=== PATIENT | male | born 1980 | race Caucasian/White ===

== ENCOUNTER 2025-01-13 16:32 | Emergency (ER) | payer BC, SELFPAY ==
[2025-01-13 16:38] VITALS: BP 114/81; PULSE 122; RESP 16; TEMP 36.7; O2SAT 94; BMI 29.8
--- NOTE | 2025-01-13 17:07 | CTR_ITS ---
PROCEDURE INFORMATION: Exam: CT Abdomen And Pelvis With Contrast Exam date and time: 01/13/2025 5:49 PM Age: 44 years old Clinical indication: Fever and other: Drainage from surgery site; Prior surgery; Surgery date: <1 month; Surgery type: Rectal surgery with ileostomy 01/02/2025; Patient C/O fever with drainage and bleeding from surgery site. Rectal surgery with ileostomy due to rectal cancer. Drainage catheter in place. ; Additional info: S/P rectal surgery. Fevers, drainage TECHNIQUE: Imaging protocol: Computed tomography of the abdomen and pelvis with contrast. Radiation optimization: All CT scans at this facility use at least one of these dose optimization techniques: automated exposure control; mA and/or kV adjustment per patient size (includes targeted exams where dose is matched to clinical indication); or iterative reconstruction. Contrast material: OMNI 350; Contrast volume: 100 ml; Contrast route: INTRAVENOUS (IV); COMPARISON: No relevant prior studies available. RADIATION DOSE METRICS: Total DLP (mGy-cm): 1068.98 FINDINGS: Lungs: The lung bases are clear. Heart: Heart size is within normal limits. There is no pericardial effusion or pericardial thickening. Liver: The liver is normal. No hepatic masses are identified. Gallbladder and biliary ducts: The gallbladder is normal. There is no ductal dilatation. Pancreas: The pancreas is normal. Spleen: The spleen is normal. Adrenal glands: The adrenal glands are normal. Kidneys and ureters: There is normal enhancement of the kidneys. No renal calcifications are identified. There is no hydronephrosis. Stomach and bowel: Moderate retained colonic stool. The rectum is surgically absent. Left lower quadrant ileostomy. Small fat containing peristomal hernia. Collection in the expected location of the rectum measuring up to 5.8 cm in transverse dimension, 4.6 cm in AP dimension and at least 14 cm in craniocaudal extent. There are mild adjacent inflammatory changes. Two drains are present though neither tip appears to be within the collection. Both drains terminate in the subcutaneous tissues. Appendix: A normal appendix is identified. Intraperitoneal space: Mild pneumoperitoneum consistent with recent surgery. Vasculature: Atherosclerotic calcifications of the aorta are present. No aneurysm is identified. Lymph nodes: No enlarged lymph nodes are identified. Urinary bladder: The bladder is unremarkable. Reproductive: The prostate is grossly unremarkable. Bones/joints: No acute osseous abnormalities are seen. Soft tissues: Alis-go-cylifilq gas in the subcutaneous tissues consistent with recent surgery. CT/CT abdomen pelvis w con* [id number] IMPRESSION: 1. Status post rectal resection with 5.8 x 4.6 x 14 cm fluid collection in the expected location of the rectum. Two drains are in place, neither of which terminate in the collection. 2. Other expected postoperative changes above
[2025-01-13] MEDS: iohexol 350 mg/mL 500 mL Btl (per mL) IV (17:19)
[2025-01-13 17:35] LABS: Basophils # 0.1 10^3/uL (0.0-0.1); Basophils % 0.4 %; Eosinophils # 0.1 10^3/uL (0.0-0.8); Eosinophils % 0.7 %; Hematocrit 33.6 % (37-53); Lymphocytes # 0.4 10^3/uL (0.8-4.8); Lymphocytes % 2.9 %; Mean Corpuscular HGB Conc 33.6 g/dL (30-55); Mean Corpuscular Hemoglobin 31.4 pg (27-33); Mean Corpuscular Volume 93.3 fl (82-101); Mean Platelet Volume 9.4 fL (7.4-10.4); Monocytes # 0.9 10^3/uL (0.2-0.9); Monocytes % 5.9 %; Neutrophils # 13.65 10^3/uL (1.8-7.7); Neutrophils % 89.8 %; Nucleated Red Blood Cells % 0 %; Platelet Count 248 10^3/cmm (157-399); Red Cell Distribution Width 11.5 % (12.1-15.1)
[2025-01-13] MEDS: sodium chloride 0.9% 1,000 ML 999 ML IV (17:39)
[2025-01-13 17:53] LABS: Alanine Aminotransferase 46 U/L (0-41); Albumin Level 3.1 g/dL (3.5-5.2); Alkaline Phosphatase 101 U/L (40-130); Anion Gap 14.8 (5-19); Aspartate Amino Transferase 22 U/L (0-40); Blood Urea Nitrogen 11 mg/dL (6-20); Calcium 7.5 mg/dL (8.5-10.5); Carbon Dioxide 21 mmol/L (22-29); Chloride 102 mmol/L (98-107); Creatinine Clr Calc Pharmacy 164.7162; Globulin 2.7 g/dL (1.3-4.6); Glomerular Filtration Rate 122.5 mL/min (90-130); Glucose 135 mg/dL (65-115); Osmolality Calculated 279 mOsm/kg (285-295); Potassium 3.8 mmol/L (3.5-5.1); Sodium 134 mmol/L (136-145); Total Bilirubin 0.3 mg/dL (0.15-1.2); Total Protein 5.8 g/dL (6.6-8.7)
[2025-01-13 17:54] LABS: Lactic Sepsis W/Reflex 1.4 mmol/L (0.5-2.2)
[2025-01-13 18:23] LABS: Influenza A NEGATIVE (Negative); Influenza B NEGATIVE (Negative); SARS-CoV-2 PCR NEGATIVE (Negative)
--- NOTE | 2025-01-13 18:33 | W.ED.GENADLT ---
HPI - General Adult General: Chief complaint: General Medical Stated complaint: fever Time Seen by Provider: 01/13/25 16:55 History of Present Illness: Chas Meyer is a 44-year-old male that presents to the emergency department with complaints of fever, fatigue, malaise. Patient is status post rectal surgery and colostomy for rectal cancer on 01/02/2025. Patient was discharged home on 01/08/2025. He was doing well at that time but within a couple days he started to have body aches and fatigue and then last night a fever of 102.9. Today Tmax 102. He developed increased drainage from his surgical site. He has AMERICO drain x 2. Drain output is dark brown to serous. He has been in contact with his surgical team at [facility]. They referred him here for further evaluation. Associated symptoms: Reports malaise; Deny chest pain, confusion, dyspnea, headache(s), nausea, rash, palpitations or vomiting Related Data Previous Rx's ?Medication ?Instructions ?Recorded amoxicillin 875 mg-potassium 1 tab PO Q12H #14 tabs 01/13/25 clavulanate 125 mg tablet Allergies Allergy/AdvReac Type Severity Reaction Status Date / Time No Known Allergies Allergy Verified 01/13/25 16:44 Review of Systems General: Reports: 10 or more systems reviewed and unremarkable except in HPI and below Const: Reports: fever(s), chills, body aches, change in appetite, fatigue and malaise; Denies: change in weight Eyes: Denies: change in vision, eye discomfort, eye discharge or eye redness ENMT: Denies: throat pain, enlarged tonsils, odynophagia, hoarseness, ear or mastoid pain, ear discharge, change in hearing, tinnitus, nasal discharge, nasal congestion, post nasal drip or sinus pain Card: Denies: chest pain, palpitations, irregular heart rhythm, edema, dyspnea on exertion, orthopnea or leg pain with exertion Resp: Denies: dyspnea, productive cough, non-productive cough, wheezing, stridor or chest congestion GI: Reports: rectal pain; Denies: abdominal pain, nausea, vomiting, dysphagia, diarrhea, constipation, bloating, GI cramping or hematochezia : Denies: flank pain, dysuria, urinary frequency, urinary urgency, urinary hesitancy, oliguria or hematuria Musc: Denies: neck pain, back pain, extremity pain, joint pain, joint swelling, joint redness, joint warmth or muscle weakness Skin/Breast: Denies: rash, pruritus, erythema, photosensitivity or new lesions Neuro: Denies: headache(s), numbness in extremities, weakness in extremities, sensory changes, lack of coordination, difficulty walking, frequent falls, dizziness, confusion, Slurred speech present, difficulty communicating thoughts, seizure-like activity or involuntary movements Endo: Denies: polyuria, polydipsia or tired all the time Greg/Lymph: Denies: easy bruising or easy bleeding Physical Exam Const: COMMON NORMALS: no acute distress, patient oriented x3 and alert GENERAL APPEARANCE: cooperative ORIENTATION/CONSCIOUSNESS: Yes awake, Yes oriented to person, Yes oriented to place and Yes oriented to time HENMT: COMMON NORMALS: normocephalic and atraumatic HEAD & SCALP: normocephalic and atraumatic FACE & SINUS: normal facial exam MOUTH: Normal oral and palatal mucosa present THROAT: posterior oropharynx normal Eye: COMMON NORMALS: Equal, round and reactive pupils present, EOMs intact bilaterally, conjunctivae normal and no scleral icterus GENERAL EYE: appearance normal, both eyes and all related structures ALIGNMENT: Yes alignment normal PERIORBITAL: periorbital findings normal CONJUNCTIVA: Yes conjunctivae normal PUPIL: Yes Equal, round and reactive pupils present Neck/C-Spine: COMMON NORMALS: full ROM GENERAL: Yes normal visual inspection Lymph: LYMPHATIC: no lymphadenopathy noted Chest: COMMONS NORMALS: normal inspection of the chest Breast/axilla inspection: Yes no chest deformity, asymmetry, normal contours, no nodules, masses, tenderness Resp: COMMON NORMALS: normal respiratory effort, No retractions, No use of accessory muscles and clear to auscultation bilaterally EFFORT & INSPECTION: Yes able to speak in complete sentences and Yes symmetric chest movement AUSCULTATION: clear to auscultation bilaterally Cardio: COMMON NORMALS: regular rate, regular rhythm and Peripheral pulses 2+ throughout RATE: regular rate RHYTHM: regular rhythm PERIPHERAL PULSES: Peripheral pulses 2+ throughout GI: COMMON NORMALS: Soft to palpation and non-tender INSPECTION: Yes normal to inspection and Yes GI ostomy present AUSCULTATION: Yes normoactive bowel sounds PALPATION: Yes Soft to palpation, No Tenderness to palpation present (GI), No Guarding due to palpation present (GI) and No Rigid due to palpation RECTAL EXAM: Yes tenderness and Yes other OTHER: Recent rectal surgery for rectal cancer. Incisions are well-approximated without erythema warmth or current drainage. His drain site dressings are saturated with serosanguineous fluid. Undergarments soiled with serosanguineous drainage Extremity: COMMON NORMALS: normal to inspection GENERAL: Yes normal exam except as noted Neuro: COMMON NORMALS: patient oriented x3 SENSORIUM/ORIENTATION: Yes alert, Yes oriented to person, Yes oriented to place and Yes oriented to time CRANIAL NERVES: Yes CN normal except as noted Psych: COMMON NORMALS: mental status grossly normal, Normal thought process present, cooperative, activity/motor behavior normal, denies homicidal ideation and denies suicidal ideation THOUGHT PROCESS: Normal thought process present Skin: COMMON NORMALS: no rashes or lesions noted, no wounds and turgor normal GENERAL SKIN EXAM: no rashes or lesions noted and turgor normal Course Vital Signs: Vital signs: Vital Signs Temperature 98.0 F 01/13/25 16:38 Pulse Rate 122 H 01/13/25 16:38 Respiratory Rate 16 01/13/25 16:38 Blood Pressure 114/81 01/13/25 16:38 Pulse Oximetry 94 01/13/25 16:38 Oxygen Delivery Me thod Room Air 01/13/25 16:38 MDM - General Adult Medical Decision Making Patient was evaluated in the emergency department today for fevers chills, fatigue and malaise. Patient had a recent rectal surgery for rectal cancer. He underwent COVID influenza RSV testing. He is RSV positive. He also underwent a CT abdomen pelvis with contrast which shows a 14 x 5 x 5 cm fluid collection in the rectum. There are drains visible but they do not terminate at the fluid collection site. He does have a white count of 15,000. He has no significant anemias and platelet count was 248. He has no significant electrolyte abnormality. We obtained a chest x-ray. XR reveals bronchiolitis [facility] was contacted due to CT findings. I spoke with Dr. Li with colorectal. We discussed diagnostic findings. Patient's symptoms really seem to be more related to his RSV rather than the abscess. Dr. Li believes that the patient can be adequately managed outpatient with Augmentin and an outpatient IR drain placement. Patient is agreeable with plan. We are going to give him criteria on when to return to the hospital?specifically [facility]. All questions were answered Lab Data 01/13/25 17:29 01/13/25 17:29 Radiology Impressions Abdomen/Pelvis CT 01/13/25 17:07 IMPRESSION: 1. Status post rectal resection with 5.8 x 4.6 x 14 cm fluid collection in the expected location of the rectum. Two drains are in place, neither of which terminate in the collection. 2. Other expected postoperative changes above Laboratory Results WBC 15.20 10^3/uL (3.29-11.43) H 01/13/25 17: RBC 3.60 10^6/uL (3.85-5.65) L 01/13/25 17: Hgb 11.30 g/dL (11.27-16.99) 01/13/25 17: Hct 33.6 % (37-53) L 01/13/25 17: MCV 93.3 fl (82-101) 01/13/25 17: MCH 31.4 pg (27-33) 01/13/25 17: MCHC 33.6 g/dL (30-55) 01/13/25 17: RDW 11.5 % (12.1-15.1) L 01/13/25: Plt Count 248 10^3/cmm (157-399) 01/13/25 17: MPV 9.4 fL (7.4-10.4) 01/13/25 17: Neut % (Auto) 89.8 % 01/13/25 17: Lymph % (Auto) 2.9 % 01/13/25: [place] % (Auto) 5.9 % 01/13/25 17: Eos % (Auto) 0.7 % 01/13/25 17: Baso % (Auto) 0.4 % 01/13/25: Neut # (Auto) 13.65 10^3/uL (1.8-7.7) H 01/13/25 17: Lymph # (Auto) 0.4 10^3/uL (0.8-4.8) L 01/13/25 17: [place] # (Auto) 0.9 10^3/uL (0.2-0.9) 01/13/25 17:29 Eos # (Auto) 0.1 10^3/uL (0.0-0.8) 01/13/25 17: Baso # (Auto) 0.1 10^3/uL (0.0-0.1) 01/13/25 17: Nucleated RBC % (auto) 0 % 01/13/25 17: Nucleated RBCs # 0.0 /100WBC 01/13/25 17: Sodium 134 mmol/L (136-145) L 01/13/25 17: Potassium 3.8 mmol/L (3.5-5.1) 01/13/25 17: Chloride 102 mmol/L (98-107) 01/13/25 17: Carbon Dioxide 21 mmol/L (22-29) L 01/13/25 17: Anion Gap 14.8 (5-19) 01/13/25 17: BUN 11 mg/dL (6-20) 01/13/25 17: Creatinine 0.7 mg/dL (0.7-1.2) 01/13/25 17: GFR Calculation 122.5 mL/min (90-130) 01/13/25 17: Glucose 135 mg/dL (65-115) H 01/13/25 17: Calculated Osmolality 279 mOsm/kg (285-295) L 01/13/25 17: Lactic Acid 1.4 mmol/L (0.5-2.2) 01/13/25 17: Calcium 7.5 mg/dL (8.5-10.5) L 01/13/25 17: Total Bilirubin 0.3 mg/dL (0.15-1.2) 01/13/25 17: AST 22 U/L (0-40) 01/13/25 17: ALT 46 U/L (0-41) H 01/13/25 17: Alkaline Phosphatase 101 U/L (40-130) 01/13/25 17: Total Protein 5.8 g/dL (6.6-8.7) L 01/13/25 17: Albumin 3.1 g/dL (3.5-5.2) L 01/13/25 17: Globulin 2.7 g/dL (1.3-4.6) 01/13/25 17:29 Amorphous Sediment Not Reportable 01/13/25 18:56 Coronavirus (PCR) Negative (Negative) 01/13/25 17:24 Influenza A (PCR) Negative (Negative) 01/13/25 17:24 Influenza Type B (PCR) Negative (Negative) 01/13/25 17:24 RSV (PCR) Positive (Negative) A 01/13/25 17:24 All radiology interpretation(s) finalized by discharge Discharge Plan Discharge Patient Disposition: Home Clinical Impression: RSV infection, Colorectal cancer, H/O resection of rectum, Postoperative wound abscess, Bronchiolitis Condition: Stable Prescriptions: New amoxicillin-pot clavulanate 875-125 mg tablet 1 tab PO Q12H Qty: 14 0RF Discharge Orders: Discharge ED (Routine); Ordered 01/13/25 Ordered By: Armand Mercado Referrals: [facility] [Other] Patient Instructions: RSV (Respiratory Syncytial Virus) Infection (ED), Pain Management Activity Restrictions/Additional Instructions: You have been diagnosed with RSV, a respiratory virus. Please monitor your symptoms closely. Tylenol and Motrin as needed for fevers. You have also been diagnosed with an abscess in the surgical site bed. As discussed, we talked with Dr. Li who believes this can be managed outpatient. I want you to call Dr. Bautista's office Wednesday morning to discuss plan for outpatient drain placement. I have started you on Augmentin that you will take twice a day for 7 days.. Print Language: Ukrainian Coding Level of Care Code ED Senior [employer] Underwriter for Oriana Ennis
[2025-01-13 18:34] LABS: Respiratory Syncytial Virus Ce POSITIVE (Negative)
--- NOTE | 2025-01-13 18:44 | XRR_ITS ---
PROCEDURE INFORMATION: Exam: XR Chest Exam date and time: 01/13/2025 6:54 PM Age: 44 years old Clinical indication: Fever and other: Rsv positive; Prior surgery; Surgery date: <1 month; Surgery type: Chest port; Fever. Rsv positive. ; Additional info: Rsv, fevers TECHNIQUE: Imaging protocol: Radiologic exam of the chest. Views: 2 views. COMPARISON: CT abdomen pelvis w con* [id number] 01/13/2025 5:49 PM FINDINGS: Tubes, catheters and devices: Left chest wall port infusion catheter. Lungs: The lungs are clear. No pulmonary consolidation. Pleural spaces: No pleural effusion or pneumothorax. Heart/Mediastinum: The cardiomediastinal silhouette is within normal limits. Bones/joints: No acute osseous abnormalities are seen. Intraperitoneal space: Trace pneumoperitoneum related to recent surgical intervention. XR/XR chest 2V* [id number] IMPRESSION: No acute cardiopulmonary disease.
[2025-01-13 19:02] LABS: Bilirubin Urine Negative (Negative); Blood Urine Negative (Negative); Glucose Urine UA Negative (Normal); Ketones Urine Negative (Negative); Leukocyte Esterase Urine Negative (Negative); Nitrate Urine Negative (Negative); Protein Urine Negative (Negative); Urine Appearance Clear (CLEAR); Urine Color Yellow (Yellow); Urobilinogen Urine 0.2 mg/dL (Negative)
[2025-01-13 19:07] LABS: Add Urine Microscopic? YES; Bacteria Urine None Seen /hpf; RBC Urine 0-2 /hpf (0-2); Squamous Epithelial Cell Urine 0-5 /hpf (0-5); WBC Urine 0-5 /hpf (0-5)
[2025-01-13 19:10] LABS: Specific Gravity, Urine 1.032 (1.005-1.030)
[2025-01-13 19:11] VITALS: BP 109/72; PULSE 100; O2SAT 96
[2025-01-13] MEDS: amoxicillin-clav 875-125 mg Tablet 1 TAB PO (19:12)
[2025-01-13 19:31] VITALS: BP 124/72; PULSE 98; O2SAT 97
== END 2025-01-13 19:30 | disposition home or self-care (01) ==
PROVIDERS: Emergency Medicine; Emergency Provider Nurse Practitioner
DX: J21.0 Acute bronchiolitis due to respiratory syncytial virus (principal); Z11.52 Encounter for screening for COVID-19; C19 Malignant neoplasm of rectosigmoid junction; T81.41XA Infection following a procedure, superficial incisional surgical site, initial encounter; X58.XXXA Exposure to other specified factors, initial encounter
CPT/HCPCS: 71046; 74177; 80053; 81001; 83605; 85025; 87637; 96361; 96374; 99285; J1642; J7030